=== PATIENT | male | born 1985 | race African-American/Black ===

== ENCOUNTER 2016-05-10 08:25 | Emergency (ER) | payer BC ==
[~2016-05-10] VITALS: Ht 177.8 cm; Wt 126.8 kg
[~2016-05-10 08:25] MED LIST: BP MED; CEPHALEXIN500 M1 PO; DOXYCYCLINE 10100 MG PO; HCTZ 25MG25 MG PO; IBU800 M1 PO; LORTAB 5/500 501 TAB PO; MUSCLE RELAXANT PO; NO HOME MEDICATIONS; NORCO 325 MG-51 TAB PO; NORCO 325 MG-7.1 TAB PO; OXY IR5 MG PO; OXYCONTIN 10MG10 MG PO; PERCOCET 325 MG1 TA2 PO; ROXICODONE 55 MG/TAB PO
[2016-05-10 08:27] VITALS: BP 164/107; PULSE 68; TEMP 98.3
[2016-05-10 09:42] LABS: BASO % 0.4 % (0.0-2.0); EOS # 0.1 (0.0-0.7); EOS % 1.1 % (0-4.0); GRAN # 3.2 (1.4-6.5); GRAN % 58.2 % (42.2-75.2); HEMATOCRIT 46.6 % (42.0-52.0); LYMPH # 1.6 (1.2-3.4); LYMPH % 29.2 % (20.0-51.0); MEAN CELL VOLUME 88 fl (80.0-100.0); MEAN CORPUSCULAR HEMOGLOBIN 28 pg (27.0-31.0); MEAN CORPUSCULAR HGB CONC 32 g/dl (33.0-37.0); MEAN PLATELET VOLUME 10.1 fl (7.4-10.4); MONO # 0.6 (0.1-0.6); MONO % 10.7 % (1.7-9.3); PLATELET COUNT 271 K/mm3 (130-400); RED BLOOD COUNT 5.28 M/mm3 (4.20-5.60); REDCELL DISTRIBUTION WIDTH-CV 13.3 % (11.5-14.5); WHITE BLOOD COUNT 5.4 K/mm3 (4.8-10.8)
[2016-05-10 09:52] LABS: ADJUSTED CALCIUM 9.5 mg/dL (8.4-10.2); ALANINE AMINOTRANSFERASE 59 U/L (21-72); ALBUMIN 4.2 gm/dL (3.5-5.0); ALKALINE PHOSPHATASE 91 U/L (50-136); ANION GAP 13 mmol/L (7-16); BILIRUBIN,TOTAL 1.4 mg/dL (0.0-1.0); BLOOD UREA NITROGEN 13 mg/dL (9-20); CALCIUM 9.7 mg/dL (8.4-10.2); CARBON DIOXIDE 27 mmol/L (22-30); CHLORIDE 103 mmol/L (98-107); CREATININE, serum 1.03 mg/dL (0.66-1.25); GLUCOSE 96 mg/dL (74-106); LIPASE 106 U/L (23-300); POTASSIUM 4.1 mmol/L (3.4-5.0); SODIUM 142 mmol/L (137-145); TOTAL PROTEIN 7.7 gm/dL (6.4-8.2)
[2016-05-10 10:03] LABS: TROPONIN-I < 0.012 ng/mL (0.000-0.034)
== END 2016-05-10 10:41 | disposition home or self-care (01) ==
LOC: COL.ER 08:25
PROVIDERS: Emergency Medicine
DX: R07.89 Other chest pain (principal)

== ENCOUNTER 2017-05-12 08:30 | Emergency (ER) | payer BC ==
[~2017-05-12] VITALS: Ht 177.8 cm; Wt 116.8 kg
[2017-05-12 08:34] VITALS: TEMP 99.1
[2017-05-12] MEDS ORDERED: TYLENOL W/COD1 UDTAB PO (09:43)
[2017-05-12] MEDS ORDERED: VOLTAREN 75 DR75 MG PO (09:43)
[2017-05-12 10:08] VITALS: BP 139/109; PULSE 82
== END 2017-05-12 10:10 | disposition home or self-care (01) ==
LOC: COL.ER 08:30
DX: R51 Headache (principal)